=== PATIENT | female | born 1955 | race Caucasian/White ===

== ENCOUNTER 2021-07-22 10:40 | Day surgery (SDC) | payer BC, SELFPAY ==
[2021-07-19 09:30] LABS: BASOPHILS % (AUTO) 0.8 % (0.0-2.0); EOSINOPHILS # (AUTO) 0.1 K/uL (0.0-0.4); EOSINOPHILS % (AUTO) 2.3 % (0.0-4.0); HEMOGLOBIN 12.8 g/dL (12.0-16.0); LYMPHOCYTES # (AUTO) 0.9 K/uL (1.0-5.5); LYMPHOCYTES % (AUTO) 15.6 % (20.5-51.5); MEAN CORPUSCULAR HEMOGLOBIN 25 pg (27-31); MEAN CORPUSCULAR HGB CONC 33 % (32-36); MEAN CORPUSCULAR VOLUME 77 fL (79.0-98.0); MONOCYTES # (AUTO) 0.4 K/uL (0.0-1.0); MONOCYTES % (AUTO) 6.7 % (1.7-9.3); NEUTROPHILS # (AUTO) 4.4 K/uL (1.8-7.7); NEUTROPHILS % (AUTO) 74.6 % (40.0-70.0); PLATELET COUNT (AUTO) 273 K/uL (130-430); RED BLOOD CELL COUNT(AUTO) 5.04 MIL/uL (4.2-6.2); RED CELL DISTRIBUTION WIDTH 13.8 % (9.0-15.0); WHITE BLOOD COUNT (AUTO) 5.9 K/uL (4.8-10.8)
[2021-07-19 09:46] LABS: CALCIUM 9.5 mg/dL (8.4-11.0); CREATININE 0.82 mg/dL (0.55-1.30)
[2021-07-19 10:20] LABS: BILIRUBIN,URINE NEGATIVE (NEGATIVE); CLARITY/URINE SL CLOUDY (CLEAR); COLOR,URINE YELLOW (YELLOW); GLUCOSE,URINE NEGATIVE (NEGATIVE); KETONES,URINE NEGATIVE (NEGATIVE); LEUKOCYTE ESTERASE ,URINE NEGATIVE (NEGATIVE); NITRITE, URINE NEGATIVE (NEGATIVE); PROTEIN URINE NEGATIVE (NEGATIVE); UROBILINOGEN,URINE 0.2 (0.2-1.0)
[2021-07-19 10:22] LABS: INR 0.9 (0.8-1.2)
[2021-07-19 10:31] LABS: BLOOD, URINE TRACE (NEGATIVE)
[2021-07-19 12:07] LABS: BACTERIA,URINE RARE /HPF (None Seen); URINE AMORPHOUS PHOSPHATES 2+ /HPF (None Seen); WBC,URINE NONE SEEN /HPF (0-3)
[~2021-07-22] VITALS: Ht 149.9 cm; Wt 60.3 kg
[2021-07-22] MEDS ORDERED: SEVOFLURANE 15 MIN GAS INH ONE (10:43)
[2021-07-22] MEDS ORDERED: fentaNYL CITRATE/PF 100 MCG/2 ML AMP IVP ONE (10:43)
[2021-07-22] MEDS ORDERED: NS 1000 ML IV.SOLN IV ONE (10:43)
[2021-07-22] MEDS ORDERED: PROPOFOL 200MG/ 20ML VIAL (DIPRIVAN) IV ONE (10:43)
[2021-07-22] MEDS ORDERED: ONDANSETRON HCL 4 MG/2 ML VIAL IVP ONE (10:43)
[2021-07-22] MEDS ORDERED: DEXAMETHASONE SOD PHOSPHATE 4 MG/ML VIAL IVP ONE (10:43)
[2021-07-22] MEDS ORDERED: MIDAZOLAM HCL 5 MG/5 ML VIAL IVP ONE (10:43)
[2021-07-22] MEDS ORDERED: METOCLOPRAMIDE HCL 10 MG/2 ML VIAL IVP ONE ×2 (10:43→14:30)
[2021-07-22] MEDS ORDERED: NS IRRIG SOLN 1000 ML IR ONE (10:43)
[2021-07-22] MEDS ORDERED: BUPIVACAINE /EPINEPHRINE/PF 0.25% 30 ML VIAL INJ ONE (10:43)
[2021-07-22] MEDS ORDERED: HYDROmorphone 1 MG/ML INJ. CARTRIDGE IVP PRN (13:30)
[2021-07-22] MEDS ORDERED: ONDANSETRON HCL 4 MG/2 ML VIAL IVP PRN (13:30)
[2021-07-22] MEDS ORDERED: NALOXONE HCL 0.4 MG/ML AMP (NARCAN) IVP PRN (13:30)
[2021-07-22] MEDS ORDERED: MEPERIDINE HCL/PF 25 MG/ML DISP.SYRIN IVP PRN (13:30)
[2021-07-22] MEDS ORDERED: LR 1,000 ML IV SCH (13:30)
[2021-07-22] MEDS ORDERED: KETOROLAC TROMETHAMINE 30 MG VIAL IVP PRN (13:30)
[2021-07-22] MEDS ORDERED: HYDROmorphone 1 MG/ML INJ. CARTRIDGE ONE (14:13)
[2021-07-22] MEDS ORDERED: METOCLOPRAMIDE HCL 10 MG/2 ML VIAL ONE (14:34)
[2021-07-22 15:00] VITALS: BP_SYST 127
== END 2021-07-22 16:45 | disposition home or self-care (01) ==
LOC: SDS 10:40 → SMU 10:46 → SDS 16:45
PROVIDERS: ATTEND Orthopaedic Surgery
DX: S83.242A Other tear of medial meniscus, current injury, left knee, initial encounter (principal); M22.42 Chondromalacia patellae, left knee; Z88.2 Allergy status to sulfonamides; X58.XXXA Exposure to other specified factors, initial encounter; Y93.89 Activity, other specified; Y92.89 Other specified places as the place of occurrence of the external cause; Y99.8 Other external cause status; Z79.01 Long term (current) use of anticoagulants; Z79.899 Other long term (current) drug therapy; Z20.822 Contact with and (suspected) exposure to COVID-19
CPT/HCPCS: 29881; 36415; 71046; 80048; 81000; 85025; 85610; 85730; 93005; J1100; J1170; J2250; J2405; J2704; J2765; J3010; J3490; J7030; U0003